=== PATIENT | female | born 1990 | race Caucasian/White ===

== ENCOUNTER 2021-01-28 11:00 | Outpatient (RCR) | payer OTHER, SELFPAY ==
--- NOTE | 2020-12-01 13:40 | PTOPEVAL ---
Thank you for referring Lorene Sutton to [facility].? The patient is scheduled to be seen for therapy? 1 x/week for 8 weeks. Please review, sign, date and return this plan of care RACHAEL. I agree with and certify that the following plan of care is medically necessary. Referring Physician Date Attending Provider: Belle Mccarty Diagnosis low back pain Onset 2017 Additional Evaluation Detail Back pain in high school and DX with scoliosis. No problems if active and exercises. Low back pain with pregnancies. Subjective Information She notes a bump in her pelvic Query Text:As Reported By Patient/ region after the of her Family 2nd child in 02/2018. She she noticed it more after the 3rd child in 01/2020. She had a fall down her steps at the end of 2018. She had bruising, but did not have xrays. She notices it more with in supine position,supine with LE movement or palpation. Denies numbness or tingling into the legs. She is performing a 12 wk pelvic floor program consisting of breathing, pelvic floor strengthening, stretching, mild strengthening. Pain Assessment Self Report Pain Assessment Lower Back Reported Pain Level 0 Pain Frequency Intermittent Lowest Pain Intensity 0 Cervical and Lumbar ROM Lumbar ROM Reason Not Measured WNL/Left,WNL/Right Lumbar Comments no pain with motions Cervical and Lumbar Muscle Testing Lumbar Strength Upper Abdominal Strength 3-Fair- Lower Abdominal Strength 2 Poor Upper Back Extension 4 Good Lower Back Extension 4 Good Lumbar Functional Strength Comments unable to maintain trunk in midline with single leg stance Lower Extremity Muscle Strength Testing Hip Strength Right Hip Flexion Strength 5 Normal Hip Extension Strength 4- Good - Hip Abduction Strength 3 Fair Left Hip Flexion Strength 5 Normal Hip Extension Strength 4- Good - Hip Abduction Strength 4- Good - Knee Strength Right Knee Flexion Strength 4 Good Knee Extension Strength 5 Normal Left Knee Flexion Strength 4 Good Knee Extension Strength 5 Normal Muscle Length Testing Muscle Length Testing Piriformis w/Hip Neutral
--- NOTE | 2020-12-29 08:20 | PCPTNOTE ---
Patient called & cancelled scheduled appointment this date due to having sick child.
--- NOTE | 2021-01-09 07:00 | PCPTNOTE ---
Admitting Provider: Attending Provider: Belle Mccarty Patient:Lorene Sutton Date of :1990 Physical therapy progress note Patient has been sent to therapy due to back pain. She has attended 5 therapy visits from 12/01/20 to 01/08/21. She is progress with her pain tolerance, muscle strength, soft tissue impairments and pelvic alignment. She is performing her home program consistently. She is progressing towards her therapy goals. She requires additional skilled therapy visits to address soft tissue restrictions of low back region which is contributing her to her pelvic obliquity and sacral torsion. Recommend 1 visit a week for 4 additional weeks to address impairments, progress her HEP and achieve therapy goals. Thank you for referring this patient to [facility]. Please review, sign, date and return this updated therapy plan of care [facility]. I have been updated about the patient's current status and I agree with discharge from the above service at this time. Referring Physician Date
--- NOTE | 2021-01-28 11:57 | PTOPEVAL ---
Physical Therapy Discharge Summary Thank you for referring Lorene Sutton to [facility].? She has attended 8 therapy visits to address pelvic alignment and back pain limitations. See summary below for detail on progress. She has partially achieved her therapy goals at this time. Will DC skilled therapy services. Please review, sign, date and return this discharge summary RACHAEL. I agree with and certify that the following plan of care is medically necessary. Referring Physician Date Referring Provider: Belle Mccarty *PT Outpatient Evaluation Start: 12/01/20 08:26 Freq: Status: Active Protocol: Document 01/28/21 10:58 DEQUAN (Rec: 01/28/21 11:38 DEQUAN [id number]) Therapy Assessment Status Assessment Status Assessment Status Re-evaluation Outpatient Past Medical History Past Medical History No Past Medical/Surgical History Patient/Family Denies Significant Past Medical/ Surgical History Evaluation Information Problem Diagnosis low back pain Onset 2017 Additional Evaluation Detail Back pain in high school and DX with scoliosis. No problems if active and exercises. Low back pain with pregnancies. She notes a bump in her pelvic region after the of her 2nd child in 02/2018. She she noticed it more after the 3rd child in 01/2020. She had a fall down her steps at the end of 2018. Subjective Information She reports her back is Query Text:As Reported By Patient/ feeling better with improved Family tolerance with activities, but cont to have soreness/ache in her sacrum/low back region. She does cont to feel like there is a bump on her pelvic region. She cont to c/o tightness of her hip/buttock muscles. Pain Assessment Lower Back Reported Pain Level 2 Pain Description Aching Pain Frequency Chronic,Intermittent Lowest Pain Intensity 0 Greatest Pain Intensity 2 Cervical and Lumbar ROM Lumbar ROM Reason Not Measured WNL/Left,WNL/Right Lumbar Flexion Active Floor Query Text:Hands to: Lumbar Comments no pain with motions slight shift to left with trunk flex motion Cervical and Lumbar Muscle Testing Lumba
== END 2021-01-29 10:33 | disposition home or self-care (01) ==
LOC: ANHPT 11:00
DX: M54.5 Low back pain (principal)
CPT/HCPCS: 97110; 97112; 97140; 97161

== ENCOUNTER → 2022-09-14 10:18 | Outpatient (CLI) | payer OTHER, BC, SELFPAY ==
--- NOTE | ~2022-09-14 | US_ITS ---
Thyroid ultrasound. Clinical History: Euthyroid with thyroid antibodies Findings: Real-time sonography of the thyroid gland was performed. The right lobe measures 5.1 x 1.2 x 1.2 cm. The left lobe measures 4.3 x 1.1 x 1.1 cm. The isthmus is 3 mm in AP diameter. No thyroid nodule identified. Impression: Unremarkable exam. Reviewed, dictated and finalized at location . Impression: Unremarkable exam.
== END ==
PROVIDERS: PCP Physician Assistant; Visit Provider Physician Assistant
DX: E07.81 Sick-euthyroid syndrome (principal)
CPT/HCPCS: 76536

== ENCOUNTER 2023-04-07 01:12 | Day surgery (SDC) | payer OTHER, SELFPAY ==
--- NOTE | 2023-03-29 10:27 | PC.NURSE ---
Report to the Outpatient Waiting Room, entrance under the green pavilion located off [facility], at time 0730 on date 04/07/23. Planned Procedure Time: 0930. Time changes happen often and if your time is changed the preop area will call you the afternoon before. - You and your visitor will be asked to self-screen and do not enter if you have any COVID symptoms. - A mask is optional within the hospital at this time. Patients may have clear liquids (water, carbonated beverages, clear teas, apple juice) until 3 hours prior to surgery with a maximum of 20 ounces. 0630 - No food from midnight until time of surgery - Infants may have breast milk until 4 hours before surgery, formula 6 hours prior to surgery. - Children will be allowed to drink immediately following surgery. If applicable, please bring a bottle or sippy cup to assist with drinking. Juice, water, soda, and popsicles are readily available. For infants on formula, please bring formula the day of surgery. Pacifiers are allowed. Take the following medications with a SIP of water the morning of surgery: control DO NOT STOP ANY OF YOUR OTHER PRESCRIPTION MEDICATIONS PRIOR TO SURGERY ?EXCEPT THE FOLLOWING Medications to discontinue per physician fish oil, vitamins & supplements Date to take last dose fish oil (03/30/[address] Williamson), vitamins/supplements (04/04/23) Please no make-up, nail djiboutian, hairspray, perfume, deodorant, or body powder the day of surgery. No jewelry (including any body piercings) or valuables the day of surgery, leave them at home. Please take a shower or bath the night before, or the morning of, surgery with an antibacterial soap. Wear comfortable, loose fitting clothing. Children are encouraged to wear pajamas. - Jewelry must be removed prior to entering the operating room. Rings and piercings that are not removed may be cut off. - The hospital will not accept responsibility for valuables. - Please leave all valuables, including medications, at home the day of surgery. If you are going home after surgery, a licensed sprinkler truck driver must drive you home. - NO public transportation without another adult if you receive anesthesia. - We recommend that an adult stay with you for 24 hours following discharge. - We also recommend that you do not drive, make important decision, drink alcoholic beverages, or take any drugs that were not prescribed by your health care provider for at least 24 hours after your discharge time. For Pediatric surgeries, we recommend two adults accompany the child home. Follow any additional instructions given to you from your surgeon. If you or anyone in your household have experienced Covid symptoms in the past week, please notify your surgeon or the nurse liaison at the phone number below for possible testing. Telephone instructions given to Patient- Lorene Sutton and asked if any additional questions and then verbalized understanding. Patient advised to call surgeon office or pre surgery nurse liaison [phone] if any additional questions.
[2023-03-29 10:37] VITALS: BMI 25.9
[2023-04-07] VITALS (10 sets, daily range): BP systolic 110–134; BP diastolic 65–86; PULSE 52–86; RESP 12–18; TEMP 36.5–37.2; O2SAT 99–100; BMI 25.0
[2023-04-07] MEDS: LACTATED RINGERS 1,000 ML 30 ML IV CONT ×3 (08:45→12:18)
--- NOTE | 2023-04-07 09:14 | WPDHPUPDATE1 ---
History and Physical Update Update Date/Time: 04/07/23 09:14 History and Physical has been reviewed, including an updated exam of the patient. There are NO changes in the patient's condition. Risks, benefits, and alternatives have been discussed and questions answered. Patient agrees to proceed with procedure.
--- NOTE | 2023-04-07 09:20 | W.PM.PROC2 ---
Procedure Note - Detailed Date of Procedure 04/07/23 Pre-op Diagnosis micromastia Post-op Diagnosis Same Procedure Performed Bilateral augmentation mammaplasty Surgeon Dewayne Williamson MD Anesthesia General Findings Bilateral Hallie Hughes SoftTouch implants Right - REF# [id number] SN [id number] Dual plane 3 Left - REF# [id number] SN [id number] Dual plane 1 Description of Procedure She is here today for bilateral breast augmentation. Previously and again today the risks, benefits, alternatives were discussed in extensive detail. I wanted her to be very realistic about the risks involved as well as expectations. We discussed aftercare and what to monitor for. Made sure answered all of her questions to her satisfaction today and consent was obtained. Marked in the preoperative holding area with their verification. The patient was taken to the operating room placed supine on the operating table. Anesthesia was provided by anesthesiology. A surgical time-out was taken. We cleansed the skin and 1% lidocaine and 0.25% Marcaine with epinephrine was used anesthetize as a field block. She was prepped and draped in a standard sterile fashion. Tegaderm nipple [place] were placed. A 15 blade used to make an incision along the inframammary fold. Dissection was continued at 45 degree angle until the chest wall as identified. Elevated prepectoral in dual plane as described above. I incised the pectoralis major along its inferior border and completely released the inferior border leaving the medial border intact. I created a subpectoral pocket in the appropriate dimensions based on our preoperative planning for the implant. I then copiously irrigated with saline solution and verified a strict hemostasis. Next the use a triple antibiotic and Betadine containing solution to irrigate the pocket. I washed my gloves with the triple antibiotic and Betadine solution. We washed the implant immediately upon opening it with this solution and only opened it when we needed it. I used implant funnel and no-touch technique. The implant was introduced into the pocket using the funnel. Having verified positioning of the implant this was closed using 2-0 PDS followed by 3-0 Monocryl in a running subcuticular 4-0 Monocryl followed by tissue glue. Fluffs and surgical bra were placed. Patient was awoke and taken to PACU without difficulty. All instrument sponge counts were correct at the end of the case. Estimated Blood Loss 25 Drains No Packing No Pathology None sent Complications No immediate complications Condition Stable Disposition PACU
--- NOTE | 2023-04-07 09:22 | WPDANESEPPF ---
Anes - Initial Pre Proc Eval Procedure: Operation Date: 04/07/23 09:30 Proposed Procedures p Bilateral Breast Augmentation - Dewayne Williamson MD Date/Time: 04/07/23 09:22 Surgeon: Dewayne Williamson MD Pre Op Diagnosis: micromastia Patient Data Age: 33 Gender: F Height: 1.7 m Weight: 72.35 kg Last Vital Signs Temp 37.2 C 04/07/23 07:45 Pulse 86 04/07/23 07:45 Resp 14 04/07/23 07:45 BP 129/86 04/07/23 07:45 Pulse Ox 99 04/07/23 07:45 O2 Del Method Room Air 04/07/23 07:45 Allergies Allergy/AdvReac Type Severity Reaction Status Date / Time No Known Allergies Allergy Unknown Verified 04/07/23 08:58 Patient hx anesthesia problems: none Family hx anesthesia problems: none Results Review: All pre-operative results and documents have been reviewed as part of the pre-operative evaluation. [facility] Social History Social History Smoking status: Never smoker Spiritual care concerns: No Anes - Eval Final PreProcedure Day of Procedure 04/07/23 09:22 Patient weight: normal Heart: regular rate and rhythm Lungs: clear to auscultation Airway: Mallampati scale class II Neurological: alert and oriented Last oral intake: >/= 8 hours ASA classification: I Emergent: no Anesthetic plan: proceed Anesthesia type and monitoring: general LMA and standard monitoring Results Review: All pre-operative results and documents have been reviewed as part of the pre-operative evaluation. Informed Consent: The patient's anesthetic plan and its attendant risks and benefits were discussed with the patient/family/POA. Questions were solicited and answers provided to the satisfaction of the patient/family/POA.
[2023-04-07] MEDS: SCOPOLAMINE 1.5 MG PATCH TRANSDERM (09:30)
[2023-04-07] MEDS: LIDO 1%/EPINEPHRINE 1:100,000 50 ML VIAL 30 ML INFILTRATE (09:38)
[2023-04-07] MEDS: BUPivacaine HCL 0.25% PF 30 ML VIAL INFILTRATE (09:38)
[2023-04-07] MEDS: TRANEXAMIC ACID 1,000MG/ISO100 1,000 MG/100 ML BAG 200 MG IVPB (09:38)
[2023-04-07] MEDS: ceFAZolin 2 GM/D5W 50 ML 2 GM/50 ML BAG IVPB (09:38)
[2023-04-07] MEDS: NACL 0.9% IRRIG POUR BOTTLE 900 ML, GENTAMICIN SULFATE INJ 160 MG, ceFAZolin 2 GM, POVI... IRRIGATION (09:38)
[2023-04-07] MEDS: HYDROmorphone HCL INJ (*CRX) 1 MG/ML SYR 0.5 MG IV PUSH ×6 (10:55→11:31)
[2023-04-07] MEDS: ONDANSETRON INJ 4 MG/2 ML VIAL IV PUSH (11:47)
[2023-04-07] MEDS: diphenhydrAMINE HCl INJ 50 MG/ML VIAL 25 MG IV PUSH (12:14)
--- NOTE | 2023-04-07 13:40 | SUR.PHASEII ---
1320: Vitals are stable. Patient is attempting to get dressed so she is unhooked from the monitors.
== END 2023-04-07 13:53 | disposition home or self-care (01) ==
PROVIDERS: PCP Physician Assistant; Visit Provider Surgery Plastic and Reconstructive Surgery
PROC: (CPT 19325; principal; 2023-04-07 09:30)
DX: Z41.1 Encounter for cosmetic surgery (principal)
CPT/HCPCS: 19325; A9270; J0690; J1100; J1170; J1200; J1580; J2250; J2405; J2704; J3010; J7120